=== PATIENT | female | born 1995 | race Hispanic/Latino ===

== ENCOUNTER 2019-05-19 15:55 | Emergency (ER) | payer SELFPAY ==
[2019-05-19 18:26] LABS: Urine Amorphous Sediment 1+ /HPF (NONE SEEN); Urine Bacteria 20-50 /HPF (<20); Urine Culture Reflex Order NOT NEEDED
--- NOTE | 2019-05-19 18:42 | EDPHYS ---
Physician Documentation [facility] Name: Tiffany Crisostomo Age: 24 yrs Sex: Female : 1995 Arrival Date: 05/19/2019 Time: 15:57 Bed 14 Private MD: ED Physician George Saldaña HPI: 05/19 18:01 This 24 yrs old Female presents to ER via Ambulatory with complaints of jr8 Urinary Problem. 18:01 The patient presents with vaginal discharge, urinary symptoms. Onset: The jr8 symptoms/episode began/occurred gradually, 4 day(s) ago. Modifying factors: The symptoms are alleviated by nothing, the symptoms are aggravated by urinating. Associated signs and symptoms: Pertinent positives: low back pain. Severity of symptoms: At their worst the symptoms were mild, in the emergency department the symptoms are unchanged. The patient is sexually active, reportedly has a single partner, does not use protection during intercourse. The patient has not experienced similar symptoms in the past. The patient has not recently seen a physician. Patient stated that she is concerned she has a urinary tract infection. Wants to make sure she has no vaginal infection as well . 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 - Social history:: Smoking status: Patient/guardian denies using tobacco. - Ebola Screening: : No symptoms or risks identified at this time. ROS: 18:01 Constitutional: Negative for fever, chills, and weight loss. jr8 18:01 Back: Positive for pain at rest, of the low back area, Negative for radiated pain. 18:01 : Positive for urinary symptoms, vaginal discharge. 18:01 All other systems are negative. Exam: 18:01 Eyes: Pupils equal round and reactive to light, extra-ocular motions intact. Lids and jr8 lashes normal. Conjunctiva and sclera are non-icteric and not injected. Cornea within normal limits. Periorbital areas with no swelling, redness, or edema. ENT: Nares patent. No nasal discharge, no septal abnormalities noted. Tympanic membranes are normal and external auditory canals are clear. Oropharynx with no redness, swelling, or masses, exudates, or evidence of obstruction, uvula midline. Mucous membranes moist. Neck: Trachea midline, no thyromegaly or masses palpated, and no cervical lymphadenopathy. Supple, full range of motion without nuchal rigidity, or vertebral point tenderness. No Meningismus. Cardiovascular: Regular rate and rhythm with a normal S1 and S2. No gallops, murmurs, or rubs. Normal PMI, no JVD. No pulse deficits. Respiratory: Lungs have equal breath sounds bilaterally, clear to auscultation and percussion. No rales, rhonchi or wheezes noted. No increased work of breathing, no retractions or nasal flaring. Abdomen/GI: Soft, non-tender, with normal bowel sounds. No distension or tympany. No guarding or rebound. No evidence of tenderness throughout. Back: No spinal tenderness. No costovertebral tenderness. Full range of motion. Skin: Warm, dry with normal turgor. Normal color with no rashes, no lesions, and no evidence of cellulitis. MS/ Extremity: Pulses equal, no cyanosis. Neurovascular intact. Full, normal range of motion. Neuro: Awake and alert, GCS 15, oriented to person, place, time, and situation. Cranial nerves II-XII grossly intact. Motor strength 5/5 in all extremities. Sensory grossly intact. Cerebellar exam normal. Normal gait. 18:01 : Pelvic Exam: External exam: is normal, no appreciated Bartholin's cyst, no erythema, not excoriated, no evidence of foreign body, no lesions, no ulcerations, no warts seen, Speculum exam: no cervicitis, os that is closed, egg white consistent discharge noted to vaginal canal , the nurse was present for the exam. Vital Signs: 16:10 BP 136 / 86; Pulse 73; Resp 16; Temp 98; Pulse Ox 99% ; Weight 65.77 kg; Height 5 ft. 2 sv in. (157.48 cm); Pain 3/10; 17:10 BP 117 / 75; Pulse 63; Resp 17; Pulse Ox 99% on R/A; rb1 18:10 BP 104 / 66; Pulse 57; Resp 16; Pulse Ox 100% on R/A; Pain 3/10; rb1 16:10 Body Mass Index 26.52 (65.77 kg, 157.48 cm) sv MDM: 17:09 Patient medically screened. [facility] 18:36 Data reviewed: vital signs, nurses notes, lab test result(s), and as a result, I will jr8 discharge patient. Data interpreted: Pulse oximetry: on room air is 100 %. Interpretation: normal. Counseling: I had a detailed discussion with the patient and/or guardian regarding: the historical points, exam findings, and any diagnostic results supporting the discharge/admit diagnosis, lab results, the need for outpatient follow up, a family practitioner, to return to the emergency department if symptoms worsen or persist or if there are any questions or concerns that arise at home. 05/19 17:20 Order name: Wet Prep; Complete Time: 18:36 [facility] 05/19 17:20 Order name: GC (GONORR/CHLAMYDIA) Probe [facility] 05/19 17:57 Order name: Urine Dipstick--Ancillary (enter results) [place] 05/19 17:57 Order name: Urine --Ancillary (enter results) il 05/19 17:58 Order name: Urine Microscopic Only; Complete Time: 18:33 rb1 05/19 16:03 Order name: Urine Test (obtain specimen); Complete Time: 17:58 kb 05/19 16:03 Order name: Urine Dipstick-Ancillary (obtain specimen); Complete Time: 17:57 kb 05/19 17:20 Order name: Pelvic Exam Setup; Complete Time: 17:58 [facility] 05/19 17:58 Order name: Urine Culture rb1 Administered Medications: No medications were administered Disposition: 05/19/19 18:36 Discharged to Home. Impression: Acute cystitis. - Condition is Stable. - Discharge Instructions: Urinary Tract Infection, Adult. - Prescriptions for Pyridium 200 mg Oral Tablet - take 1 tablet by ORAL route every 8 hours for 3 days; 9 tablet. Macrobid 100 mg Oral Capsule - take 1 capsule by ORAL route every 12 hours for 7 days; 14 capsule. - Medication Reconciliation Form, Thank You Letter, Antibiotic Education, Prescription Opioid Use, Work release form form. - Follow up: Private Physician; When: 2 - 3 days; Reason: Recheck today's complaints, Continuance of care, Re-evaluation by your physician. - Problem is new. - Symptoms have improved. Addendum: 05/21/2019 10:23 Co-signature as Attending Physician, George Saldaña MD I agree with the assessment and c rodrigues plan of care. Signatures: Dispatcher [employer] EDMelida Cortez, BELT MOLDER-C BELT MOLDER-Cat Cantu, RN RN George Salas MD MD cha Roszak, Josh, PA PA jr8 Natasha Saleh, RN RN rb1 Corrections: (The following items were deleted from the chart) 05/19 18:47 18:36 05/19/2019 18:36 Discharged to Home. Impression: Acute cystitis. Condition is rb1 Stable. Forms are Medication Reconciliation Form, Thank You Letter, Antibiotic Education, Prescription Opioid Use. Follow up: Private Physician; When: 2 - 3 days; Reason: Recheck today's complaints, Continuance of care, Re-evaluation by your physician. Problem is new. Symptoms have improved. jr8
--- NOTE | 2019-05-19 18:42 | ER ---
Nurse's Notes [facility] Name: Tiffany Crisostomo Age: 24 yrs Sex: Female : 1995 Arrival Date: 05/19/2019 Time: 15:57 Bed 14 Private MD: Diagnosis: Acute cystitis Presentation: 05/19 16:08 Presenting complaint: Patient states: burning with urination, vaginal swelling, sv itching, yellow vaginal discharge x 2 days. Transition of care: patient was not received from another setting of care. Onset of symptoms was May 2019. Risk Assessment: Do you want to hurt yourself or someone else? Patient reports no desire to harm self or others. Care prior to arrival: None. 16:08 Method Of Arrival: Ambulatory sv 16:08 Acuity: TUNG 3 sv 17:12 Initial Sepsis Screen: Does the patient meet any 2 criteria? No. Patient's initial rb1 sepsis screen is negative. Does the patient have a suspected source of infection? No. Patient's initial sepsis screen is negative. 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 - Social history:: Smoking status: Patient/guardian denies using tobacco. - Ebola Screening: : No symptoms or risks identified at this time. Screenin:12 Abuse screen: Denies threats or abuse. Nutritional screening: No deficits noted. rb1 Tuberculosis screening: No symptoms or risk factors identified. Fall Risk None identified. Assessment: 17:12 General: Appears in no apparent distress. comfortable, Behavior is calm, cooperative, rb1 Denies fever. Pain: Complains of pain in low back area Pain currently is 3 out of 10 on a pain scale. Neuro: Level of Consciousness is awake, alert, obeys commands, Oriented to person, place, time, situation. Cardiovascular: Capillary refill < 3 seconds is brisk in bilateral fingers. Respiratory: Airway is patent Respiratory effort is even, unlabored, Respiratory pattern is regular, symmetrical. GI: No signs and/or symptoms were reported involving the gastrointestinal system. : Reports burning with urination, discharge, from vagina that is yellow, since x 2 days. Derm: Skin is pink, warm \T\ dry. 18:12 Reassessment: Patient appears in no apparent distress at this time. No changes from rb1 previously documented assessment. Vital Signs: 16:10 BP 136 / 86; Pulse 73; Resp 16; Temp 98; Pulse Ox 99% ; Weight 65.77 kg; Height 5 ft. 2 sv in. (157.48 cm); Pain 3/10; 17:10 BP 117 / 75; Pulse 63; Resp 17; Pulse Ox 99% on R/A; rb1 18:10 BP 104 / 66; Pulse 57; Resp 16; Pulse Ox 100% on R/A; Pain 3/10; rb1 16:10 Body Mass Index 26.52 (65.77 kg, 157.48 cm) sv ED Course: 15:57 Patient arrived in ED. as 16:10 Triage completed. sv 16:10 Arm band placed on. sv 17:07 Gabriel Reyes PA is PHCP. jr8 17:07 George Saldaña MD is Attending Physician. jr8 17:39 Natsaha Saleh, RN is Primary Nurse. rb1 18:21 Patient has correct armband on for positive identification. Bed in low position. Call mh5 light in reach. Side rails up X 1. Pulse ox on. NIBP on. 18:45 No provider procedures requiring assistance completed. Patient did not have IV access rb1 during this emergency room visit. Administered Medications: No medications were administered Outcome: 18:36 Discharge ordered by . jr8 18:45 Discharged to home ambulatory. rb1 18:45 Condition: stable 18:45 Discharge instructions given to patient, Instructed on discharge instructions, follow up and referral plans. medication usage, Demonstrated understanding of instructions, follow-up care, medications, Prescriptions given X 2. 18:47 Patient left the ED. rb1 Signatures: Cat Franklin, RN EMIL Elena Milan Josh, PA PA [facility] Natasha Saleh, EMIL STEIN [facility] Mili Milan [facility]
[2019-05-19 19:24] LABS: Urine Blood TRACE (NEG); Urine Glucose NEGATIVE (NEG); Urine Protein NEGATIVE (NEG); Urine pH 7.5 (5.0-7.0)
[2019-05-19 20:36] VITALS: TEMP 98
[2019-05-19 20:38] VITALS: BP 104/66; O2SAT 100
[2019-05-23 07:45] LABS: C.trachomatis RNA,TMA Not Detected (Not Detected)
== END 2019-05-19 18:47 | disposition home or self-care (01) ==
LOC: ER 15:55
DX: N30.00 Acute cystitis without hematuria (principal)
CPT/HCPCS: 81003; 81015; 81025; 87086; 87088; 87210; 87490; 87590; 99283